=== PATIENT | female | born 1975 | race Caucasian/White ===

== ENCOUNTER 2016-09-17 00:13 | Emergency (ER) | payer OTHER ==
[~2016-09-17] VITALS: Ht 162.6 cm; Wt 62.4 kg
[~2016-09-17 00:13] MED LIST: ACET500T57 PO; AZIT250T PO; IBUP-103 PO
[2016-09-17 00:29] VITALS: TEMP 36.8; Ht 162.6 cm; Wt 62.4 kg
[2016-09-17] MEDS ORDERED: SODIUM CHLORIDE 0.9% 1000ML 1,000 ML IV ONE (00:50)
[2016-09-17] MEDS ORDERED: KETOROLAC TROMETHAMINE 30 MG/ML VIAL IV STA (00:50)
[2016-09-17] MEDS ORDERED: SODIUM CHLORIDE 0.9% 1000ML 1,000 ML IV STA (00:50)
--- NOTE | 2016-09-17 00:52 | EMERGENCY ROOM VISIT NOTE ---
History Report prepared by Rajni: Anthony Nelson Under the Supervision of: Dr. Hunter Matias M.D. First contact with patient: 00:42 Chief Complaint: KIDNEY STONE Stated Complaint: KIDNEY PAIN,NAUSEA,LACK OF BREATH History of Present Illness The patient is a 41 year old female who presents to the Emergency Room with complaints of left sided flank pain that began 2 weeks ago. She rates the pain a 7/10 in severity. The patient has a history of kidney stones that began 1 year ago with lithotripsy. Recently she has been having similar feelings of a kidney stone. She is also experiencing chest tightness, shortness of breath, headaches, shakiness, and burning with urination. She denies any chest pain, cough, and fever. She does not have any other medical problems. There is no chance that she is . They have not travelled recently. Source of History: patient, spouse/significant other Onset: 2 weeks ago Position: back (left flank) Symptom Intensity: 7/10 Quality: sharp Timing: worsening Associated Symptoms: + SOB, + urinary symptoms, No chest pain, No cough, No fevers Review of Systems See HPI for pertinent positives & negatives. A total of 10 systems reviewed and were otherwise negative. Past Medical & Surgical Medical Problems: (1) Chest pain (2) Ear pain (3) Flank pain (4) Flank pain (5) Flank pain (6) H. pylori infection (7) History of kidney stones (8) Kidney stone (9) Kidney stone (10) No Known Active Medical Problems (11) Renal colic (12) Renal colic (13) Renal colic Old medical records were reviewed. Nurse's notes were reviewed and I agree with. Family History Kidney disease Kidney stones Social History Smoking Status: Never Smoker Alcohol Use: none Marital Status: Housing Status: lives with family Current/Historical Medications Scheduled PRN Acetaminophen (Acetaminophen), 500 MG PO UD PRN for Pain or Fever Ibuprofen Tab (Advil), 200 MG PO UD PRN for Pain or Fever Allergies Coded Allergies: Ciprofloxacin (Verified Allergy, Mild, RASH, 09/17/16) Oxycodone (Verified Allergy, Unknown, Hypotension., 09/17/16) Penicillins (Verified Allergy, Unknown, ., 09/17/16) Physical Exam Vital Signs Date Time Temp Pulse Resp B/P Pulse Ox O2 Delivery O2 Flow Rate FiO2 09/17/16 03:15 62 18 111/62 97 Room Air 09/17/16 01:47 87 18 132/71 97 Room Air 09/17/16 00:29 36.8 67 20 105/65 99 Room Air Physical Exam General: Non ill appearing young female. Well developed well nourished in no acute distress, breathing comfortably on room air. Normal speech HEENT: Normal cephalic atraumatic. Pupils are equal round and reactive to light. Sclerae anicteric. Extraocular movements are intact. Oropharynx is pink with moist mucous membranes. No swelling of the mouth lips or tongue. Neck: Supple with a midline trachea. No meningeal signs or stiffness, no JVD or bruits. No Stridor. Chest: Clear to auscultation bilaterally. No wheezes or rhonchi. No increased work of breathing. Heart: regular rate and rhythm. Abdomen: Soft nontender, nondistended without rebound guarding or rigidity. Extremities: No cyanosis clubbing or edema. No calf tenderness or assymetry Spine/Back. Non tender to palpation. No CVA tenderness Skin: Good turgor without rashes. Neurologic exam: Cranial nerves two through 12 are intact. Motor and sensation are intact and symmetrical throughout. Medical Decision & Procedures ER Provider Diagnostic Interpretation: Radiology results as stated below per my review and radiologist interpretation: CTA CHEST: No pulmonary embolism detected. Lungs are clear. No pleural effusion or pneumothorax. Heart size is normal. No pericardial effusion. Subcentimeter thyroid nodules. No follow-up required per ACR guidelines. CT ABDOMEN & PELVIS: Comparison: CT abdomen and pelvis 01/24/16 No obstructing calculus of hydronephrosis. 4 mm nonobstructing right renal calculus. Right adnexal cyst measuring 7.2 x 4.0 cm, not seen on the 01/24/16 study. Recommend ultrasound for further evaluation. Intrauterine device is present. Small amount of free fluid in the pelvis, likely physiologic. Gallbladder is contracted. Questionable subtle adjacent fat stranding. Correlate with symptoms and consider RUQ ultrasound if indicated. No biliary dilatation. No free air. Bowel is normal caliber. Appendix is normal. Radiologist: Koffi Reece M.D. Chest x-ray per my interpretation reveals no pneumothorax, failure, or infiltrate. Laboratory Results 09/17/16 01:05 Red Blood Count 4.43, Mean Corpuscular Volume 87.8, Mean Corpuscular Hemoglobin 31.2, Mean Corpuscular Hemoglobin Concent 35.5, Mean Platelet Volume 9.5, Neutrophils (%) (Auto) 48.0, Lymphocytes (%) (Auto) 40.9, Monocytes (%) (Auto) 8.4, Eosinophils (%) (Auto) 2.4, Basophils (%) (Auto) 0.1, Neutrophils # (Auto) 4.33, Lymphocytes # (Auto) 3.69, Monocytes # (Auto) 0.76, Eosinophils # (Auto) 0.22, Basophils # (Auto) 0.01 09/17/16 01:05 Test 09/17/16 01:05 09/17/16 01:10 09/17/16 01:30 White Blood Count 9.03 K/uL (4.8-10.8) Red Blood Count 4.43 M/uL (4.2-5.4) Hemoglobin 13.8 g/dL (12.0-16.0) Hematocrit 38.9 % (37-47) Mean Corpuscular Volume 87.8 fL (80-100) Mean Corpuscular Hemoglobin 31.2 pg (25-34) Mean Corpuscular Hemoglobin Concent 35.5 g/dl (32-36) Platelet Count 199 K/uL (130-400) Mean Platelet Volume 9.5 fL (7.4-10.4) Neutrophils (%) (Auto) 48.0 % Lymphocytes (%) (Auto) 40.9 % Monocytes (%) (Auto) 8.4 % Eosinophils (%) (Auto) 2.4 % Basophils (%) (Auto) 0.1 % Neutrophils # (Auto) 4.33 K/uL (1.4-6.5) Lymphocytes # (Auto) 3.69 K/uL (1.2-3.4) Monocytes # (Auto) 0.76 K/uL (0.11-0.59) Eosinophils # (Auto) 0.22 K/uL (0-0.5) Basophils # (Auto) 0.01 K/uL (0-0.2) RDW Standard Deviation 41.0 fL (36.4-46.3) RDW Coefficient of Variation 12.8 % (11.5-14.5) Immature Granulocyte % (Auto) 0.2 % Immature Granulocyte # (Auto) 0.02 K/uL (0.00-0.02) Anion Gap 7.0 mmol/L (3-11) Est Creatinine Clear Calc Drug Dose 90.1 ml/min Estimated GFR () 122.6 Estimated GFR (Non- 105.8 BUN/Creatinine Ratio 14.4 (10-20) Calcium Level 9.3 mg/dl (8.5-10.1) Human Chorionic Gonadotropin, Qual NEG (NEG) Bedside D-Dimer > 450 ng/mlFEU (0-450) Bedside Troponin I 0.000 ng/ml (0-0.045) Urine Color YELLOW Urine Appearance CLEAR (CLEAR) Urine pH 6.5 (4.5-7.5) Urine Specific [place] 1.006 (1.000-1.030) Urine Protein NEG (NEG) Urine Glucose (UA) NEG (NEG) Urine Ketones NEG (NEG) Urine Occult Blood NEG (NEG) Urine Nitrite NEG (NEG) Urine Bilirubin NEG (NEG) Urine Urobilinogen NEG (NEG) Urine Leukocyte Esterase NEG (NEG) Laboratory studies as stated above per my review. Medications Administered Medications (Trade) Dose Ordered Sig/Leonard Route Start Time Stop Time Status Last Admin Dose Admin Ketorolac Tromethamine 30 mg 30 mg NOW STAT IV 09/17/16 00:50 09/17/16 00:51 DC 09/17/16 01:12 30 MG Sodium Chloride 1,000 ml @ 999 mls/hr Q1H1M STAT IV 09/17/16 00:50 09/17/16 01:50 DC 09/17/16 00:50 999 MLS/HR Sodium Chloride (Nss 1000ml) 1,000 ml @ 150 mls/hr Q6H40M ONCE IV 09/17/16 00:50 09/17/16 04:21 DC 09/17/16 00:50 150 MLS/HR ECG Indication: back/shoulder pain Rate (beats per minute): 62 Rhythm: normal sinus Findings: no acute ischemic change, no ectopy Comparison ECG Date: no prior available ED Course 0022: Past medical records reviewed. The patient was evaluated in room C4, and a complete history and physical examination were performed. 0050: Sodium Chloride 1000 ml @ 150 mls/hr IV, Sodium Chloride 1000 ml @ 999 mls /hr IV, Toradol Inj 30 mg IV 0144: I was notified that the patient's D-Dimer came back slightly elevated. 0227: I reassessed the patient at this time. She is doing fine. I ordered a CT scan. 0345: Upon reevaluation, the patient is resting. I discussed the results and treatment plan with her. She verbalized agreement of the treatment plan. The patient was discharged home. Medical Decision Differentials include kidney stone, kidney infection, pulmonary embolism, arrhythmia, cardiac disease, infection, and electrolyte or metabolic abnormality. This patient comes in as described above. She was placed from C4 she has multiple complaints. She's had left flank pain. she also had some sensation of feeling short winded. she does not appear to be short of breath and has no significant chest pain. She looks well on exam. IV access was established and she was hydrated with IV normal saline. EKG does not suggest acute coronary syndrome or arrhythmia .chest x-ray was unremarkable .she's no acute electrolyte or metabolic abnormalities and has normal kidney function. Her d- dimer was elevated light of this I did do a chest CT as well as a CAT scan of her abdomen and pelvis and has no evidence of PE or pulmonary process. Her left kidney is unremarkable but she does have a right sided ovarian cyst. She has no tenderness over there and seems to be an incidental finding. I recommended she get an ultrasound for follow-up and offered to do tonight. They do have children at home and wished to go home pending encouraged her to use ibuprofen for pain and follow-up with her doctor tomorrow for recheck and she will ultimately need an ultrasound follow-up as well. She was happy with plan and discharged to home. Impression Primary Impression: Left flank pain Scribe Attestation The scribe's documentation has been prepared under my direction and personally reviewed by me in its entirety. I confirm that the note above accurately reflects all work, treatment, procedures, and medical decision making performed by me. Departure Information Dispostion Home / Self-Care Referrals Tamy Domínguez DO (PCP) Forms HOME CARE DOCUMENTATION FORM, IMPORTANT VISIT INFORMATION Patient Instructions My [facility] Additional Instructions Rest. Use ibuprofen 400 mg every 6 hours, take with food Return if: Increasing pain, worsening symptoms, fever chills, any new problems or concerns Follow-up with your doctor in 1-2 days. You do have likely an ovarian cyst that will likely need further evaluation on the right and maybe ultrasound
[2016-09-17 01:16] LABS: BASO % 0.1 %; BASO ABS # 0.01 K/uL (0-0.2); COMPLETE YES; EOS % 2.4 %; HEMATOCRIT 38.9 % (37-47); IG% 0.2 %; LYMPH % 40.9 %; LYMPH ABS # 3.69 K/uL (1.2-3.4); MEAN CELL VOLUME 87.8 fL (80-100); MEAN CORPUSCULAR HEMOGLOBIN 31.2 pg (25-34); MEAN CORPUSCULAR HGB CONC 35.5 g/dl (32-36); MEAN PLATELET VOLUME 9.5 fL (7.4-10.4); MONO % 8.4 %; PLATELET COUNT 199 K/uL (130-400); RED BLOOD COUNT 4.43 M/uL (4.2-5.4); WHITE BLOOD COUNT 9.03 K/uL (4.8-10.8)
[2016-09-17 01:33] LABS: BUN/CREATININE RATIO 14.4 (10-20); CALCIUM 9.3 mg/dl (8.5-10.1); CREATININE 0.71 mg/dl (0.60-1.20); POTASSIUM 3.5 mmol/L (3.5-5.1)
[2016-09-17 01:43] LABS: PREG INTERNAL NEGATIVE QC NEG CLEAR BACKGROUND; PREG INTERNAL POSITIVE QC POS CONTROL LINE
[2016-09-17 01:56] LABS: URINE APPEARANCE CLEAR (CLEAR); URINE BILIRUBIN NEG (NEG); URINE COLOR YELLOW; URINE NITRITE NEG (NEG); URINE PH 6.5 (4.5-7.5); URINE SPECIFIC GRAVITY 1.006 (1.000-1.030); UROBILINOGEN NEG (NEG)
[2016-09-17 01:58] LABS: MANUAL MICROSCOPIC REQUIRED? NO; REVIEW REQ? NO
[2016-09-17] MEDS ORDERED: OPTIRAY 320 IV PRN (02:30)
[2016-09-17 03:15] VITALS: BP 111/62; PULSE 62; O2SAT 97
--- NOTE | 2016-09-17 07:19 | DIAGNOSTIC IMAGING REPORT ---
SINGLE VIEW CHEST CLINICAL HISTORY: Atypical chest pain. FINDINGS: An AP, portable, upright chest radiograph is compared to study dated 05/27/2016. The cardiomediastinal silhouette is unremarkable. The lungs and pleural spaces are clear. No pneumothorax is seen. The bony thorax is grossly intact. IMPRESSION: No active disease in the chest. Electronically signed by: Damien Linder M.D. 09/17/2016 7:18 AM Dictated Date/Time: 09/17/2016 7:17 AM
--- NOTE | 2016-09-17 07:23 | DIAGNOSTIC IMAGING REPORT ---
CT ANGIOGRAM OF THE CHEST CLINICAL HISTORY: Atypical chest pain. Dyspnea. COMPARISON STUDY: Chest x-ray dated 09/17/2016. TECHNIQUE: Following the IV administration of 92 cc of Optiray 320, CT angiogram of the chest was performed from the upper abdomen to the thoracic inlet utilizing the pulmonary embolus protocol. Images are reviewed in the axial, sagittal, and coronal planes. 3-D MIPS images are created and assessed. IV contrast was administered without complication. FINDINGS: Thyroid: Imaged portions of the thyroid gland are normal in size and attenuation. Subcentimeter low-attenuation thyroid nodules are identified. Thoracic aorta: The thoracic aorta is normal in caliber and demonstrates bovine variant arch anatomy. No dissection is seen. Pulmonary vasculature: The pulmonary trunk is normal in caliber. There are no filling defects identified in main, lobar, or segmental pulmonary branches to suggest pulmonary embolus. Heart: The heart is normal in size and configuration, and without pericardial effusion. Lungs and pleural spaces: The lungs and pleural spaces are clear noting minimal dependent atelectasis. The trachea and central airways are patent. Mediastinum: There is no mediastinal lymphadenopathy. Cammie: Clear. Axillae: There is no axillary lymphadenopathy. Upper abdomen: Hepatic periportal edema is suggested, likely related to hydration status. Partially visualized upper abdominal viscera is otherwise within normal limits. Skeletal structures: No lytic or blastic bony lesions are seen. IMPRESSION: 1. There is no evidence of pulmonary embolus in the main, lobar, or segmental pulmonary arteries. 2. The lungs are clear. Electronically signed by: Damien Linder M.D. 09/17/2016 7:21 AM Dictated Date/Time: 09/17/2016 7:18 AM
--- NOTE | 2016-09-17 07:30 | DIAGNOSTIC IMAGING REPORT ---
ABDOMEN AND PELVIS CT WITHOUT CONTRAST CT DOSE: 819.19 mGy.cm HISTORY: Flank pain. Abdominal pain. eval for stone on right TECHNIQUE: Multiaxial CT images of the abdomen and pelvis were performed without the use of intravenous and oral contrast according to the standard department stone protocol. COMPARISON STUDY: 01/24/2016 FINDINGS: Lung bases are clear. Liver spleen and pancreas are unremarkable. 5 mm nonobstructing lower pole right renal calcification. No evidence for an obstructing urinary tract process. No evidence for hydronephrosis or hydroureter. Bowel pattern is considered nonobstructive. Intrauterine device within the central uterine canal. Uterus is anteflexed. A 7 x 4.5 cm right ovarian cystic process. Pelvic ultrasound is suggested as follow-up. Bladder is midline. IMPRESSION: 1. 7 x 4.5 cm cystic process region right ovary.. 2. Pelvic ultrasonography is suggested as follow-up. 3. Nonobstructing lower pole right renal calcification Electronically signed by: Kadeem Martell M.D. 09/17/2016 7:28 AM Dictated Date/Time: 09/17/2016 7:25 AM
== END 2016-09-17 03:50 | disposition home or self-care (01) ==
LOC: C.EDB 00:14 → C.EDC 03:50
DX: R10.9 Unspecified abdominal pain (principal); Z87.442 Personal history of urinary calculi; Z84.1 Family history of disorders of kidney and ureter